=== PATIENT | female | born 1995 | race Caucasian/White ===

== ENCOUNTER 2016-12-21 19:09 | Emergency (ER) | payer SELFPAY ==
[~2016-12-21] VITALS: Ht 160 cm; Wt 74.4 kg
[~2016-12-21 19:09] MED LIST: AUGMENTIN ES-6100 ML PO; BACTRIM DS 8001 TA1 PO; BIOTIN1 M1 PO; FLONASE ALLERG9.9 ML NAS; KEFLEX500 MG PO; MEDROL DOSEPAK4 MG PO; MOTRIN400 MG PO; MOTRIN600 MG PO; NAPROSYN500 MG PO; NAPROXEN500 MG PO; NORCO 325 MG-51 TAB PO; PARAFON FORTE500 MG PO; PREDNISONE10 MG PO; PYRIDIUM200 MG PO; ROBITUSSIN DM 105 ML PO; TYLENOL W/ CODEI5 ML PO; VISTARIL25 M1 PO; VISTARIL50 MG PO; ZOFRAN ODT4 MG SL
[2016-12-21 20:47] LABS: BILIRUBIN NEGATIVE (NEGATIVE); BLOOD NEGATIVE (NEGATIVE); CLARITY SL CLOUDY (CLEAR); COLOR YELLOW (YELLOW); GLUCOSE NEGATIVE (NEGATIVE); KETONE NEGATIVE (NEGATIVE); LEUKO ESTERASE NEGATIVE (NEGATIVE); NITRITE NEGATIVE (NEGATIVE); PROTEIN NEGATIVE (NEGATIVE); UROBILINOGEN 0.2 E.U./dl (0.2-1.0)
[2016-12-21 20:55] LABS: BACTERIA 1+
[2016-12-21 20:56] LABS: URINE REFLEX COMMENT YES (NO)
[2016-12-21 22:24] LABS: ALBUMIN 3.1 gm/dl (3.1-4.5); ALKALINE PHOSPHATASE 77 U/L (45-117); BILIRUBIN, TOTAL 0.2 mg/dl (0.2-1.0); BUN 9 mg/dl (7-24); C-REACTIVE PROTEIN 2.16 MG/DL (0-0.3); CARBON DIOXIDE 25 mmol/L (21-32); CHLORIDE 110 mmol/L (98-107); EST GLOM FILT AFRICAN AMERICAN > 60 ml/min; GLUCOSE 85 mg/dL (65-99); POTASSIUM 3.7 mmol/L (3.5-5.1); SGOT/AST 13 IU/L (3-35); SGPT/ALT 16 U/L (12-78); SODIUM 144 mmol/L (136-145); TOTAL PROTEIN 5.8 gm/dL (6.4-8.2)
[2016-12-21 22:26] LABS: B-hCG (QUALITATIVE) NEGATIVE (NEGATIVE)
[2016-12-21 23:29] LABS: BASO % 0.4 % (0.0-1.0); EOS # 0.3 10*3/uL (0.0-0.4); EOS % 3.1 % (1.0-4.0); HEMATOCRIT 37.2 % (37.0-47.0); HEMOGLOBIN 12.4 g/dl (12.0-16.0); LYMPH # 3.2 10*3/uL (1.3-4.4); LYMPH % 35.8 % (27.0-41.0); MEAN CELL VOLUME 86.9 fl (81.0-99.0); MEAN CORPUSCULAR HGB CONC 33.3 g/dl (33.0-37.0); MEAN PLATELET VOLUME 10.6 fl (9.6-12.3); MONO # 0.6 10*3/uL (0.1-1.0); NEUT # 4.8 10*3/uL (2.3-7.9); NEUT % 53.5 % (47.0-73.0); PLATELET COUNT AUTOMATED 246 10*3/uL (130-400); RED BLOOD COUNT 4.28 10*6/uL (4.10-5.10); RED CELL DISTRI WIDTH 13.2 % (0-14.5)
[2016-12-21] MEDS ORDERED: ZOFRAN ODT4 MG SL (23:41)
[2016-12-21] MEDS ORDERED: LOMOTIL 0.025 M1 TA1 PO (23:41)
== END 2016-12-22 | disposition home or self-care (01) ==
LOC: ED 19:09
PROVIDERS: Emergency Medicine Emergency Medical Services
DX: K52.9 Noninfective gastroenteritis and colitis, unspecified (principal); E86.0 Dehydration; G43.909 Migraine, unspecified, not intractable, without status migrainosus; Z79.899 Other long term (current) drug therapy

== ENCOUNTER 2017-04-29 12:58 | Emergency (ER) | payer SELFPAY ==
[~2017-04-29] VITALS: Ht 160 cm; Wt 79.4 kg
[~2017-04-29 12:58] MED LIST changes: +LOMOTIL 0.025 M1 TA1 PO
[2017-04-29] MEDS ORDERED: ROBITUSSIN DM 105 ML PO (13:11)
[2017-04-29] MEDS ORDERED: FLONASE ALLERG9.9 ML NAS (13:11)
[2017-04-29] MEDS ORDERED: CLARITIN10 MG PO (13:11)
[2017-04-29] MEDS ORDERED: PREDNISONE10 MG PO (13:11)
== END 2017-04-29 14:44 | disposition home or self-care (01) ==
LOC: ED 12:58
DX: B34.9 Viral infection, unspecified (principal); F17.200 Nicotine dependence, unspecified, uncomplicated; F10.10 Alcohol abuse, uncomplicated; R03.0 Elevated blood-pressure reading, without diagnosis of hypertension

== ENCOUNTER 2017-07-20 15:21 | Emergency (ER) | payer SELFPAY ==
[~2017-07-20] VITALS: Ht 160 cm; Wt 79.4 kg
[~2017-07-20 15:21] MED LIST changes: +CLARITIN10 MG PO
== END 2017-07-20 17:00 | disposition home or self-care (01) ==
LOC: ED 15:21
DX: B34.9 Viral infection, unspecified (principal); F10.10 Alcohol abuse, uncomplicated; Z79.899 Other long term (current) drug therapy

== ENCOUNTER 2017-07-25 04:52 | Emergency (ER) | payer SELFPAY ==
[~2017-07-25] VITALS: Ht 160 cm; Wt 79.4 kg
[2017-07-25 06:01] LABS: BASO # 0.1 10*3/uL (0.0-0.1); BASO % 0.4 % (0.0-1.0); EOS # 0.5 10*3/uL (0.0-0.4); EOS % 4.5 % (1.0-4.0); HEMOGLOBIN 13.5 g/dl (12.0-16.0); LYMPH # 3.6 10*3/uL (1.3-4.4); MEAN CELL VOLUME 86.3 fl (81.0-99.0); MEAN CORPUSCULAR HGB 28.4 pg (27.0-31.0); MEAN CORPUSCULAR HGB CONC 32.9 g/dl (33.0-37.0); MEAN PLATELET VOLUME 10.3 fl (9.6-12.3); MONO # 0.7 10*3/uL (0.1-1.0); MONO % 6.3 % (3.0-9.0); NEUT # 6.3 10*3/uL (2.3-7.9); NEUT % 56.4 % (47.0-73.0); PLATELET COUNT AUTOMATED 329 10*3/uL (130-400); RED BLOOD COUNT 4.75 10*6/uL (4.10-5.10); RED CELL DISTRI WIDTH 12.5 % (0-14.5); WHITE BLOOD COUNT 11.2 10*3/uL (4.8-10.8)
[2017-07-25 06:20] LABS: ALBUMIN 3.6 gm/dl (3.1-4.5); ALKALINE PHOSPHATASE 182 U/L (45-117); BUN 11 mg/dl (7-24); CHLORIDE 105 mmol/L (98-107); CREATININE 0.97 mg/dL (0.55-1.02); POTASSIUM 3.6 mmol/L (3.5-5.1); SGOT/AST 28 IU/L (3-35); SGPT/ALT 68 U/L (12-78); SODIUM 141 mmol/L (136-145); TOTAL PROTEIN 7.4 gm/dL (6.4-8.2)
[2017-07-25] MEDS ORDERED: Motrin,Rufen800 MG PO ×2 (06:45→07:13)
[2017-07-25] MEDS ORDERED: PREDNISONE20 M1 PO ×2 (06:45→07:13)
[2017-07-25] MEDS ORDERED: ZITHROMAX250 MG PO ×2 (06:45→07:13)
== END 2017-07-25 07:04 | disposition home or self-care (01) ==
LOC: ED 04:52
PROVIDERS: Emergency Medicine Emergency Medical Services
DX: J20.9 Acute bronchitis, unspecified (principal); Z91.030 Bee allergy status; Z79.899 Other long term (current) drug therapy

== ENCOUNTER 2018-09-20 09:33 | Emergency (ER) | payer SELFPAY ==
[~2018-09-20] VITALS: Wt 77.1 kg
[~2018-09-20 09:33] MED LIST changes: +Motrin,Rufen800 MG PO; +PREDNISONE20 M1 PO; +ZITHROMAX250 MG PO
[2018-09-20] MEDS ORDERED: DELTASONE20 M1 PO (11:01)
== END 2018-09-20 11:06 | disposition home or self-care (01) ==
LOC: ED 09:33
DX: B34.9 Viral infection, unspecified (principal); Z79.899 Other long term (current) drug therapy; Z91.030 Bee allergy status

== ENCOUNTER 2019-02-09 10:21 | Emergency (ER) | payer SELFPAY ==
[~2019-02-09] VITALS: Ht 160 cm; Wt 81.6 kg
[~2019-02-09 10:21] MED LIST changes: +DELTASONE20 M1 PO
[2019-02-09 10:45] LABS: BILIRUBIN NEGATIVE (NEGATIVE); BLOOD NEGATIVE (NEGATIVE); CLARITY CLEAR (CLEAR); COLOR STRAW (YELLOW); GLUCOSE NEGATIVE (NEGATIVE); KETONE NEGATIVE (NEGATIVE); LEUKO ESTERASE NEGATIVE (NEGATIVE); NITRITE NEGATIVE (NEGATIVE); SPECIFIC GRAVITY <= 1.005 (1.005-1.030); UROBILINOGEN 0.2 E.U./dl (0.2-1.0)
[2019-02-09 11:01] LABS: BACTERIA 1+
[2019-02-09 11:02] LABS: WBC 0-2 wbc/hpf (0-5)
[2019-02-09 11:02] LABS: BASO % 0.5 % (0.0-1.0); EOS # 0.1 10*3/uL (0.0-0.4); EOS % 1.7 % (1.0-4.0); HEMATOCRIT 41.5 % (37.0-47.0); HEMOGLOBIN 13.6 g/dl (12.0-16.0); LYMPH # 3.5 10*3/uL (1.3-4.4); LYMPH % 42.8 % (27.0-41.0); MEAN CELL VOLUME 88.1 fl (81.0-99.0); MEAN CORPUSCULAR HGB 28.9 pg (27.0-31.0); MEAN CORPUSCULAR HGB CONC 32.8 g/dl (33.0-37.0); MEAN PLATELET VOLUME 10.7 fl (9.6-12.3); MONO # 0.6 10*3/uL (0.1-1.0); MONO % 6.9 % (3.0-9.0); NEUT # 3.9 10*3/uL (2.3-7.9); PLATELET COUNT AUTOMATED 317 10*3/uL (130-400); RED BLOOD COUNT 4.71 10*6/uL (4.10-5.10); RED CELL DISTRI WIDTH 12.9 % (0-14.5); WHITE BLOOD COUNT 8.1 10*3/uL (4.8-10.8)
[2019-02-09 11:18] LABS: ALBUMIN 3.8 gm/dl (3.1-4.5); ALKALINE PHOSPHATASE 116 U/L (45-117); BUN 15 mg/dl (7-24); CHLORIDE 105 mmol/L (98-107); CREATININE 0.97 mg/dL (0.55-1.02); LIPASE 181 U/L (73-393); POTASSIUM 3.7 mmol/L (3.5-5.1); SGOT/AST 20 IU/L (3-35); SGPT/ALT 59 U/L (12-78); SODIUM 138 mmol/L (136-145); TOTAL PROTEIN 7.1 gm/dL (6.4-8.2)
== END 2019-02-09 12:02 | disposition home or self-care (01) ==
LOC: ED 10:21
PROVIDERS: Physician Assistant
DX: R30.0 Dysuria (principal); R10.32 Left lower quadrant pain; R11.0 Nausea; R51 Headache; Z91.030 Bee allergy status; Z79.2 Long term (current) use of antibiotics; Z79.899 Other long term (current) drug therapy

== ENCOUNTER 2019-04-01 23:16 | Emergency (ER) | payer SELFPAY ==
[~2019-04-01] VITALS: Ht 160 cm; Wt 81.6 kg
[2019-04-01] MEDS ORDERED: ZYRTEC10 MG PO (23:34)
[2019-04-01] MEDS ORDERED: TESSALON PERLE100 M1 PO (23:34)
== END 2019-04-01 23:42 | disposition home or self-care (01) ==
LOC: ED 23:16
DX: J06.9 Acute upper respiratory infection, unspecified (principal); R11.10 Vomiting, unspecified; J45.909 Unspecified asthma, uncomplicated; Z91.030 Bee allergy status; Z79.899 Other long term (current) drug therapy

== ENCOUNTER 2019-05-15 10:45 | Emergency (ER) | payer SELFPAY ==
[~2019-05-15] VITALS: Ht 160 cm; Wt 81.6 kg
[~2019-05-15 10:45] MED LIST changes: +TESSALON PERLE100 M1 PO; +ZYRTEC10 MG PO
[2019-05-15] MEDS ORDERED: CEPHALEXIN500 M1 PO (11:19)
== END 2019-05-15 11:26 | disposition home or self-care (01) ==
LOC: ED 10:45
DX: L53.9 Erythematous condition, unspecified (principal); Z48.00 Encounter for change or removal of nonsurgical wound dressing; Z91.030 Bee allergy status; Z79.899 Other long term (current) drug therapy; Z79.2 Long term (current) use of antibiotics

== ENCOUNTER → 2020-05-31 | Outpatient (CLI) | payer SELFPAY ==
[~2020-05-31] MED LIST changes: +CEPHALEXIN500 M1 PO; +FOSFOMYCIN TROME3 GM PO
== END | disposition home or self-care (01) ==
LOC: COVID19 10:33
PROVIDERS: ATTEND Internal Medicine
DX: Z20.828 Contact with and (suspected) exposure to other viral communicable diseases (principal)

== ENCOUNTER 2020-07-12 07:25 | Emergency (ER) | payer OTHER ==
[~2020-07-12] VITALS: Wt 72.6 kg
[~2020-07-12 07:25] MED LIST changes: -FOSFOMYCIN TROME3 GM PO
[2020-07-12 08:19] LABS: BILIRUBIN Negative (Negative); BLOOD 3+ (Negative); CLARITY Cloudy (Clear); COLOR Yellow (Yellow); GLUCOSE Negative (Negative); KETONE Negative (Negative); LEUKO ESTERASE 3+ (Negative); NITRITE Negative (Negative); PH 6.5 (4.5-8.0); SPECIFIC GRAVITY 1.015 (1.001-1.030); UROBILINOGEN 0.2 E.U./dl (0.0-1.0)
[2020-07-12 08:28] LABS: BACTERIA 4+; EPITHELIAL CELLS 16-20; MUCOUS 1+; RBC TNTC rbc/hpf (0-2); WBC TNTC wbc/hpf (0-5)
[2020-07-12] MEDS ORDERED: FOSFOMYCIN TROME3 GM PO (08:34)
== END 2020-07-12 08:59 | disposition home or self-care (01) ==
LOC: ED 07:25
PROVIDERS: Emergency Medicine
DX: N39.0 Urinary tract infection, site not specified (principal); F41.9 Anxiety disorder, unspecified; G43.909 Migraine, unspecified, not intractable, without status migrainosus; F32.9 Major depressive disorder, single episode, unspecified; Z91.030 Bee allergy status; Z91.048 Other nonmedicinal substance allergy status; Z79.899 Other long term (current) drug therapy

== ENCOUNTER 2020-09-01 14:41 | Emergency (ER) | payer SELFPAY ==
[~2020-09-01] VITALS: Ht 160 cm; Wt 80.3 kg
[~2020-09-01 14:41] MED LIST changes: +FOSFOMYCIN TROME3 GM PO
== END 2020-09-01 17:26 | disposition left against medical advice (07) ==
LOC: ED 14:41
DX: R21 Rash and other nonspecific skin eruption (principal); Z53.21 Procedure and treatment not carried out due to patient leaving prior to being seen by health care provider

== ENCOUNTER 2020-09-28 03:17 | Emergency (ER) | payer SELFPAY ==
[2020-09-28 03:37] LABS: BILIRUBIN 1+ (Negative); BLOOD 3+ (Negative); CLARITY Turbid (Clear); COLOR Red (Yellow); GLUCOSE Negative (Negative); KETONE Negative (Negative); LEUKO ESTERASE 3+ (Negative); NITRITE Positive (Negative); PH 6.5 (4.5-8.0); SPECIFIC GRAVITY 1.025 (1.001-1.030)
[2020-09-28 03:50] LABS: RBC TNTC rbc/hpf (0-2)
[2020-09-28 03:52] LABS: WBC TNTC wbc/hpf (0-5)
[2020-09-28] MEDS ORDERED: CIPRO500 MG PO (03:55)
== END 2020-09-28 04:16 | disposition home or self-care (01) ==
LOC: ED 03:17
PROVIDERS: Internal Medicine
DX: N39.0 Urinary tract infection, site not specified (principal); G43.909 Migraine, unspecified, not intractable, without status migrainosus; F41.9 Anxiety disorder, unspecified; F32.9 Major depressive disorder, single episode, unspecified; F17.200 Nicotine dependence, unspecified, uncomplicated

== ENCOUNTER → 2021-04-15 | Outpatient (CLI) | payer OTHER ==
[~2021-04-15] MED LIST changes: +CIPRO500 MG PO
== END | disposition home or self-care (01) ==
LOC: COVID19 15:52
PROVIDERS: ATTEND Internal Medicine
DX: Z11.52 Encounter for screening for COVID-19 (principal)

== ENCOUNTER → 2021-07-16 | Outpatient (CLI) | payer OTHER | END | disposition home or self-care (01) | LOC: COVID19 17:03 | PROVIDERS: ATTEND Podiatrist Foot & Ankle Surgery | DX: U07.1 COVID-19 (principal) ==

== ENCOUNTER 2022-09-24 15:24 | Emergency (ER) | payer OTHER ==
[~2022-09-24] VITALS: Ht 160 cm; Wt 85.3 kg
== END 2022-09-24 17:15 | disposition home or self-care (01) ==
LOC: ED 15:24
DX: U07.1 COVID-19 (principal); Z79.899 Other long term (current) drug therapy; Z98.890 Other specified postprocedural states

== ENCOUNTER 2022-12-24 10:15 | Emergency (ER) | payer OTHER | END 2022-12-24 11:46 | disposition left against medical advice (07) | LOC: ED 10:15 | DX: B34.9 Viral infection, unspecified (principal); G43.909 Migraine, unspecified, not intractable, without status migrainosus; F41.9 Anxiety disorder, unspecified; F32.A Depression, unspecified; Z88.8 Allergy status to other drugs, medicaments and biological substances; Z98.890 Other specified postprocedural states; Z20.822 Contact with and (suspected) exposure to COVID-19 ==